=== PATIENT | male | born 1975 | race Hispanic/Latino ===

== ENCOUNTER 2017-04-18 09:03 | Emergency (ER) | payer OTHER ==
[~2017-04-18] VITALS: Ht 175.3 cm; Wt 131.5 kg
[2017-04-18 09:11] VITALS: BP 115/82
--- NOTE | 2017-04-18 09:35 | ED INFLUENZA/URI COMPLAINT ---
History of Present Illness General Chief Complaint: Upper Respiratory Sx/Fever Stated Complaint: URI/RASH Source: patient, old records Exam Limitations: no limitations Vital Signs & Intake/Output Vital Signs & Intake/Output Vital Signs Date Time Temp Pulse Resp B/P B/P Pulse O2 O2 Flow FiO2 Mean Ox Delivery Rate 04/18 0911 98.1 70 20 115/82 97 Room Air Allergies Coded Allergies: No Known Allergies (04/18/17) Reconcile Medications Amoxicillin/Potassium Clav (Augmentin 875-125 Tablet) 875 MG-125 MG TABLET 1 TAB PO BID uri Methylprednisolone. (Medrol) 4 MG TAB.DS.PK 1 DP PO AD dermatitis 6 on day 1 then reduce by one tablet daily until gone Triage Note: C/O ITCHY RASH ON ARMS, NECK, HEAD, FACE AND HANDS SINCE YESTERDAY. PT ALSO C/O CONGESTION Triage Nurses Notes Reviewed? yes Onset: Abrupt Duration: day(s): (3-4), constant Timing: recent history Severity: mild Severity Numbers: 5 Prior Episodes/Possible Cause: occassional episodes No Modifying Factors: none Associated Symptoms: cough, nasal congestion, nasal drainage HPI: 41-year-old male with history of hypertension presents to ER for evaluation complaining of rhinorrhea congestion cough for the past few days. He reports his sons have been home sick with similar symptoms. He states this morning he also woke up with a pruritic rash to his arms and chest wall. He denies history of similar rash in the past no sick contacts with rash as well. He denies any difficulty swallowing difficulty breathing nausea vomiting. He has not taken anything for his symptoms. He is on losartan for blood pressure. The patient states he did begin using a new detergent for his close (Xavi Blankenship) Past History Travel History Traveled to [place] past 21 day No Medical History Any Pertinent Medical History? see below for history Cardiovascular: hypertension Surgical History Surgical History: none Psychosocial History What is your primary language Greenlandic Tobacco Use: Never used ETOH Use: occasional use Illicit Drug Use: denies illicit drug use Family History Hx Contributory? No (Xavi Blankenship) Review of Systems Review of Systems Constitutional: Reports: see HPI. Comments Review of systems: See HPI, All other systems negative. Constitutional, no chills no fever, HEENT: no sore throat congestion Cardiovascular: No chest pain Skin: see hpi Respiratory: No dyspnea cough no sputum GI: No nausea no vomiting, no diarrhea, Muscle skeletal: No joint pain, no back pain, no neck pain, Neurologic: , no headache Heme/endocrine: No bruising Immunology: No lymphadenopathy (Xavi Blankenship) Physical Exam Physical Exam General Appearance: well developed/nourished, alert, awake Ears, Nose, Throat: normal ENT inspection, moist mucous membrane, hearing grossly normal Comments: Well-developed well-nourished patient in no apparent distress. Head/Face: Atraumatic, no maxillary/frontal sinus tenderness, no facial swelling Eyes: PERRL, EOMI, no conjunctival injection Ear:External auditory canals clear Nose: atraumatic.Normal inspection Throat: Moist mucous membranes.Pharynx normal. No stridor/drooling or assymetry. No swelling or edema. No uvula displacement no stridor no trismus Neck: Supple, no lymphadenopathy, FROM Back: FROM Cardiovascular: Regular rate and rhythms no murmurs rubs or gallops, Respiratory: No respiratory distress. Patient speaking in full complete sentences. Breath sounds clear to auscultation bilaterally: NO W/R/R Extremities: full range of motion Neuro: awake, alert, and oriented to person, place and time. There were no obvious focal neurologic abnormalities. Skin: Warm & dry; mild urticaria noted to bilateral volar forearms and upper chest wall Psych: Mood affect normal, normal memory normal judgment. Core Measures Sepsis Present: No Sepsis Focused Exam Completed? No (Xavi Blankenship) Progress Differential Diagnosis: influenza, otitis, pharyngitis, sinusitis, allergic reaction, viral exanthem Plan of Care: Discussed with patient plan of care, he is speaking in full complete sentences in no apparent distress advised close follow up with his primary care physician this week prescription for Medrol Dosepak Augmentin will be provided they feel comfortable plan cleared for discharge. Initial ED EKG: none (Xavi Blankenship) Departure Departure Time of Disposition: 935 Disposition: HOME OR SELF CARE Condition: Stable Clinical Impression Primary Impression: URI (upper respiratory infection) Secondary Impressions: Dermatitis Referrals: Oh Perez MD (PCP/Family) Additional Instructions: augmentin and medrol dosepak as directed. drink plenty of fluids. stop using the new detergent. follow up with your pmd return with any concerns Departure Forms: Customer Survey General Discharge Information Prescriptions: Current Visit Scripts Amoxicillin/Potassium Clav (Augmentin 875-125 Tablet) 1 TAB PO BID #14 TAB Methylprednisolone. (Medrol) 1 DP PO AD #1 DP 6 on day 1 then reduce by one tablet daily until gone (Oskar NEVAREZ,Xavi) PA/BOBTAILER Co-Sign Statement Statement: ED Attending supervision documentation- [] I saw and evaluated the patient. I have also reviewed all the pertinent lab results and diagnostic results. I agree with the findings and the plan of care as documented in the PA's/BOBTAILER's documentation. [X] I have reviewed the ED Record and agree with the PA's/BOBTAILER's documentation. [] Additions or exceptions (if any) to the PAs/BOBTAILER's note and plan are summarized below: [] (Neida CHEN,Iván Brady)
[2017-04-18] MEDS ORDERED: MEDROL4 M2 PO (09:38)
[2017-04-18] MEDS ORDERED: AUGMENTIN 875-1 EACH PO (09:38)
== END 2017-04-18 09:46 ==
LOC: ERH 09:03
DX: J06.9 Acute upper respiratory infection, unspecified (principal); L30.9 Dermatitis, unspecified

== ENCOUNTER 2017-06-19 09:02 | Observation (INO) | payer OTHER ==
[~2017-06-19] VITALS: Ht 175.3 cm; Wt 131.5 kg
[~2017-06-19 09:02] MED LIST: AUGMENTIN 875-1 EACH PO; MEDROL4 M2 PO
--- NOTE | 2017-06-19 09:26 | ED CARDIAC/CP/PALPITATIONS ---
History of Present Illness General Chief Complaint: Abdominal Pain/Flank Pain Stated Complaint: ABDOMINAL PAIN Source: patient Exam Limitations: no limitations Vital Signs & Intake/Output Vital Signs & Intake/Output Vital Signs Date Time Temp Pulse Resp B/P B/P Pulse O2 O2 Flow FiO2 Mean Ox Delivery Rate 06/20 0639 98.2 78 18 108/69 94 Room Air 06/20 0430 97.9 69 18 104/60 96 Room Air / 0229 97.8 63 20 106/56 96 Room Air / 0030 98.2 65 20 143/76 95 Room Air / 1913 99.5 84 17 148/81 96 Room Air 06/19 1735 100.4 78 16 158/84 97 Room Air 06/19 1432 99.9 73 18 154/86 98 Room Air / 1016 76 180/100 03/ 0915 98.4 76 18 180/100 98 Room Air ED Intake and Output 06/20 0000 / 1200 Intake Total 60 Output Total Balance 60 Intake, Oral 60 Patient 290 lb Weight Weight Reported by Patient Measurement Method Allergies Coded Allergies: No Known Allergies (04/18/17) Triage Note: 41 YO MALE TO TRIAGE C/O ABD PAIN IN MID-ABD SINCE THIS AM. DENIES NVD. LMB THIS AM AND NORMAL FOR PT. Triage Nurses Notes Reviewed? yes Onset: Abrupt Duration: constant Timing: single episode today Quality/Severity: sharp, stabbing Location: abdomen Radiation: no radiation HPI: Patient is a 41-year-old male with a past medical history of hypertension currently on no certain and gout who takes NSAIDs on a regular basis who presents emergency room seen at last night he was in his normal state of health patient woke up today with acute onset of epigastric nonradiating stabbing pain symptoms began around the time he had a significant bowel movement patient states the bowel movement was brown no blood no melena noted symptoms still persisted and was significant that patient presents emergency room, patient denies any fever chills back pain arm pain jaw pain diaphoresis nausea cough shortness of breath chest pain testicular pain history of DVT or PE He did not take his LOSARTAN today Denies any nausea or vomiting Patient is complaining of a one-day history of right-sided ear pain (Ruth NEVAREZ,Xavi) Reconcile Medications Losartan (Cozaar) 100 MG TABLET 100 MG PO HTN (Reported) Oxycodone HCl/Acetaminophen (Percocet 5-325 MG Tablet) 5 MG-325 MG TABLET 1-2 TAB PO Q4-6 PRN PAIN (Neida CHEN,Iván Brady) Past History Travel History Traveled to [place] past 21 day No Medical History Any Pertinent Medical History? see below for history Cardiovascular: hypertension Musculoskeletal: gout Surgical History Surgical History: none Psychosocial History What is your primary language Filipino Tobacco Use: Never used Family History Hx Contributory? No (Xavi Nelson) Review of Systems Review of Systems Constitutional: Reports: no symptoms. EENTM: Reports: no symptoms. Respiratory: Reports: no symptoms. Cardiovascular: Reports: no symptoms. GI: Reports: see HPI, abdominal pain. Genitourinary: Reports: no symptoms. Musculoskeletal: Reports: no symptoms. Skin: Reports: no symptoms. Neurological/Psychological: Reports: no symptoms. Hematologic/Endocrine: Reports: no symptoms. Immunologic/Allergic: Reports: no symptoms. All Other Systems: Reviewed and Negative (Xavi Nelson) Physical Exam Physical Exam General Appearance: moderate distress, obese Head: atraumatic Eyes: Bilateral: normal appearance. Ears, Nose, Throat: hearing grossly normal, RIGHT TM ERYTHEMA Neck: normal inspection Respiratory: normal breath sounds, chest non-tender, no respiratory distress Cardiovascular: regular rate/rhythm Peripheral Pulses: 2+ radial (R) Gastrointestinal: EPIGASTRIC PAIN NO RLQ PAIN Extremities: normal inspection Skin: intact, normal color, warm/dry Core Measures ACS in differential dx? Yes CVA/TIA Diagnosis No Sepsis Present: No Sepsis Focused Exam Completed? No (Xavi Nelson) Progress Differential Diagnosis: AMI, aortic dissection, atrial fibrillation, cholecystitis, CHF/pulm edema, costochondritis, hyperkalemia, hypovolemia, hyperthyroid, hyperventilation, intracranial hemorrhage, musculoskeletal pain, myocarditis, pancreatitis, pericarditis, pneumonia, pneumothorax, PSVT, pulmonary embolism, PUD/GERD, PVCs/PACs, respiratory failure, sepsis, unstable angina, V-fib/V-Tach, WPW syndrome Plan of Care: Orders Procedure Date/time Status Regular Diet 06/20 B Active CBC WITHOUT DIFFERENTIAL 06/20 599 Active BASIC ELECTROLYTES PLUS BUN&CR 06/20 599 Active Vital Signs 06/20 28 Active Teach/Educate 06/20 28 Active Pain Treatment and Response 06/20 28 Active Nutritional Intake, Monitor 03/07 0029 Active Isolation 06/20 0029 Active Intake & Output 06/20 0029 Active Patient Care Conference 06/20 0029 Active Activity/Ambulation 06/20 0029 Active Regular Diet 06/19 D Complete Pathway - chart 06/[address] in observation 06/19 2313 Active Patient Data 06/19 2240 Active Code Status 06/19 2240 Active PATHOLOGY SPECIMEN 06/19 2158 Active TROPONIN LEVEL 06/19 1430 Complete EKG 06/19 1430 Active LACTIC ACID 06/19 1327 Complete Add-on Test (ER Only) 06/19 1311 Active PARTIAL THROMBOPLASTIN TIME 06/19 1311 Complete PROTHROMBIN TIME 06/19 1311 Complete TYPE & SCREEN (NOT X-MATCH) 06/19 1311 Complete Intake & Output 06/19 1046 Active Telemetry/Real Time Analyst 06/19 0927 Active TROPONIN LEVEL 06/19 0916 Complete LIPASE 06/19 0916 Complete COMPREHENSIVE METABOLIC PANEL 06/19 0916 Complete CBC WITHOUT DIFFERENTIAL 06/19 0916 Complete AMYLASE 06/19 0916 Complete EKG 06/[address] in observation 06/19 UNK Active Wound Care/Dressing 06/19 UNK Active VTE Mechanical Prophylaxis 06/19 UNK Active Vital Signs 06/19 UNK Active Activity/Ambulation 06/19 UNK Active Current Medications Sig/Ladarius Start time Last Medication Dose Stop Time Status Admin Losartan Potassium 100 MG DAILY 06/20 1000 AC (Cozaar) Metronidazole 500 MG IQ8 06/20 0000 AC 06/20 (Flagyl) 06/20 0859 0016 N/A 1 UNIT (No Carrier) Acetaminophen 650 MG Q6P PRN 06/19 2315 AC (Tylenol) Morphine Sulfate 4 MG Q2P PRN 06/19 2315 AC (MORPHINE SULFATE) Ondansetron HCl 4 MG Q6P PRN 06/19 2315 AC (Zofran) Oxycodone/ 1 TAB Q4P PRN 06/19 2315 AC Acetaminophen (Percocet) Oxycodone/ 2 TAB Q4P PRN 06/19 2315 AC Acetaminophen (Percocet) Promethazine HCl 12.5 MG Q6P PRN 06/19 2315 AC (Phenergen) 06/26 231 Ceftriaxone Sodium 1,000 MG ONCE ONE 06/19 1315 CAN (Rocephin) 06/19 1316 Metronidazole 500 MG ONCE ONE 06/19 1315 CAN (Flagyl) 06/19 1414 N/A 1 UNIT (No Carrier) Laboratory Tests 06/19/17 1852: Lactic Acid Cancelled 06/19/17 1552: Lactic Acid 1.3, PT 12.3, INR 1.13, APTT 31 06/19/17 1433: Troponin I < 0.01 06/19/17 1130: Anion Gap 14, Estimated GFR > 60, BUN/Creatinine Ratio 13.8, Glucose 97, Calcium 9.5, Total Bilirubin 0.5, AST 25, ALT 41, Alkaline Phosphatase 104, Troponin I < 0.01, Total Protein 7.4, Albumin 4.3, Globulin 3.1, Albumin/Globulin Ratio 1.4, Amylase 55, Lipase 53, CBC w Diff NO MAN DIFF REQ, RBC 6.01, MCV 80.7, MCH 26.6 L, MCHC 33.0, RDW 14.4, MPV 8.8, Gran % 79.5 H, Lymphocytes % 13.2 L, Monocytes % 5.9, Eosinophils % 0.9, Basophils % 0.5, Absolute Granulocytes 6.8 H, Absolute Lymphocytes 1.1 L, Absolute Monocytes 0.5, Absolute Eosinophils 0.1 , Absolute Basophils 0 06/19/17 0925: Amylase Cancelled, Lipase Cancelled Patient on initial examination was in moderate distress due to epigastric localized abdominal pain. Patient does have nonspecific ST elevation in V1 and V2 however denies any cardiovascular symptoms and his symptoms of presentation of ND are seemingly atypical however cardiac marker blood work will be obtained. After morphine was GIVEN, patient had significant resolution of his pain. Patient currently is resting comfortably at bedside blood work and CT scan is pending Patient has been reevaluated on multiple occasions and has multiple exacerbations of this pain morphine was given on multiple occasions I discussed results with radiologist for concerns of early acute appendicitis due to amoxicillin allergy he was administered Rocephin Flagyl 1330 Discussed patient with Watson Barnard MD who was aware and WILL evaluate On reexamination patient he now has right lower quadrant pain It was discussed to me by surgical PA that they advised to discontinue the antibiotics at this time 1422 Surgery will evaluate patient and approximately 90 minutes Repeat troponin was unremarkable 1533 patient was reevaluated resting comfortably was offered pain medications and declined 1746- patient was reevaluated and now has more concerns of right lower quadrant pain on exam patient does have noted fever discussed patient with Watson Barnard MD who evaluated patient in the emergency room and will most likely proceed with appendectomy today. He advised patient to now be given antibiotics. Discussed this disposition AND plan with patient who requested another dose of pain medication. Diagnostic Imaging: Viewed by Me: Radiology Read. Discussed w/RAD: Radiology Read. Radiology Impression: acute abnormality Initial ED EK BPM,NONSPECIFIC ST ELEVATION IN V1/V2 Repeat EKG: unchanged Comments: PATIENT: AUGUSTIN AGUILAR PRESENT AGE: 41 PATIENT ACCOUNT NO: [id number] : 77 LOCATION: ER ORDERING PHYSICIAN: Xavi NEVAREZ SERVICE DATE: 06/19/17 EXAM TYPE: CAT - CT ABD & PELVIS W IV CONTRAST EXAMINATION: CT ABDOMEN AND PELVIS WITH CONTRAST CLINICAL INFORMATION: Epigastric pain COMPARISON: None TECHNIQUE: Multidetector volumetric imaging was performed of the abdomen and pelvis following IV administration of 95 mL of Optiray 320 intravenous contrast. Sagittal and coronal reformatted images were obtained on the technologist's workstation. DLP: 1612 mGy-cm FINDINGS: LUNG BASES: The visualized lung bases are unremarkable. LIVER, GALLBLADDER, AND BILIARY TREE: The liver is normal in size, shape, and attenuation. No focal hepatic lesion or biliary ductal dilatation is present. The gallbladder is unremarkable with no evidence of radiopaque gallstones, gallbladder wall thickening, or obvious pericholecystic inflammatory changes. PANCREAS: Unremarkable. SPLEEN: Unremarkable. ADRENAL GLANDS: Unremarkable. KIDNEYS AND URETERS: The kidneys are normal in size, shape, and attenuation. No hydronephrosis, hydroureter, or calculi seen. No perinephric stranding. BLADDER: Unremarkable. GASTROINTESTINAL TRACT: The stomach is decompressed with no gross abnormality. The small bowel is normal in caliber. No obstruction. There is a tiny appendicolith in the appendix. The appendix is mildly prominent, measuring 0.9 cm in diameter. Faint adjacent inflammation is noted. The appearance raises suspicion for appendicitis. The remainder of the colon demonstrates no wall thickening or inflammatory changes there is minimal diverticulosis at the sigmoid colon. ABDOMINAL WALL: No significant hernia is appreciated. LYMPH NODES: Normal. VASCULAR: Unremarkable. PELVIC VISCERA: The prostate and seminal vesicles are unremarkable. OSSEOUS STRUCTURES: No acute or suspicious osseous abnormalities. IMPRESSION: Mildly prominent appendix. Appendicolith present with minimal adjacent inflammation. The appearance is suspicious for early appendicitis. This critical result was discussed with Xavi Miranda MD by telephone at 06/19/2017 1:02 PM and it was ascertained that the content and urgency of the report was understood at the time of direct communication. DICTATED BY: Davide Ervin MD DATE/TIME DICTATED:06/19/171258 MAIL HANDLER EQUIPMENT OPERATOR:JULIUS DATE/TIME TRANSCRIBED:06/19/171258 CONFIDENTIAL, DO NOT COPY WITHOUT APPROPRIATE AUTHORIZATION. <Electronically signed in Other Vendor System> SIGNED BY: Aziza CHEN,Davide 06/19 1308 PATIENT: AUGUSTIN AGUILAR PRESENT AGE: 41 PATIENT ACCOUNT NO: [id number] : 77 LOCATION: [facility] ORDERING PHYSICIAN: Xavi NEVAREZ SERVICE DATE: 06/19/17 EXAM TYPE: RAD - XRY-PORTABLE CHEST XRAY EXAMINATION: XR PORTABLE CHEST CLINICAL INFORMATION: Epigastric chest pain COMPARISON: None TECHNIQUE: Portable frontal view of the chest was obtained. FINDINGS: No focal consolidation, pleural effusion or pneumothorax. Borderline cardiomegaly, likely accentuated by technique and hypoinflation. No acute osseous abnormality. IMPRESSION: No acute pulmonary process. Borderline cardiomegaly likely accentuated by hypoinflation of the lungs and AP technique. DICTATED BY: Negar Zhang MD DATE/TIME DICTATED:06/19/17955 MAIL HANDLER EQUIPMENT OPERATOR:JULIUS (Xavi Nelson) Departure Departure Disposition: STILL A PATIENT Condition: Guarded Clinical Impression Primary Impression: Appendicitis Secondary Impressions: Right otitis media Referrals: Oh Perez MD (PCP/Family) Departure Forms: Customer Survey General Discharge Information OR/GI Note Spoke With: Evon CHEN,Watson Soriaon. ED Treatment Decision: AUGUSTIN AGUILAR requires urgent operative management or an emergent procedure that cannot be performed in the Emergency Room setting. Transport To: [facility] (Xavi Nelson) Departure Prescriptions: Current Visit Scripts Oxycodone HCl/Acetaminophen (Percocet 5-325 MG Tablet) 1-2 TAB PO Q4-6 PRN PAIN #36 TAB PA/RN CASE MGR Co-Sign Statement Statement: ED Attending supervision documentation- [X] I saw and evaluated the patient. I have also reviewed all the pertinent lab results and diagnostic results. I agree with the findings and the plan of care as documented in the PA's/RN CASE MGR's documentation. [X] I have reviewed the ED Record and agree with the PA's/RN CASE MGR's documentation. [] Additions or exceptions (if any) to the PAs/RN CASE MGR's note and plan are summarized below: [] (Neida CHEN,Iván Brady) PA/RN CASE MGR Co-Sign Statement Statement: ED Attending supervision documentation- [] I saw and evaluated the patient. I have also reviewed all the pertinent lab results and diagnostic results. I agree with the findings and the plan of care as documented in the PA's/RN CASE MGR's documentation. [] I have reviewed the ED Record and agree with the PA's/RN CASE MGR's documentation. [] Additions or exceptions (if any) to the PAs/RN CASE MGR's note and plan are summarized below: [] (Corey Beatty DO) Critical Care Note Critical Care Note Critical Care Time: 75-104 min (Ruth NEVAREZ,Xavi)
--- NOTE | 2017-06-19 10:01 | RADIOLOGY REPORT ---
EXAMINATION: XR PORTABLE CHEST CLINICAL INFORMATION: Epigastric chest pain COMPARISON: None TECHNIQUE: Portable frontal view of the chest was obtained. FINDINGS: No focal consolidation, pleural effusion or pneumothorax. Borderline cardiomegaly, likely accentuated by technique and hypoinflation. No acute osseous abnormality. IMPRESSION: No acute pulmonary process. Borderline cardiomegaly likely accentuated by hypoinflation of the lungs and AP technique.
[2017-06-19 11:40] LABS: ABSOLUTE BASOPHIL COUNT 0 /CUMM (0.0-0.2); ABSOLUTE EOSINOPHIL COUNT 0.1 /CUMM (0.0-0.7); ABSOLUTE GRANULOCYTE CT 6.8 /CUMM (1.4-6.5); ABSOLUTE LYMPH COUNT 1.1 /CUMM (1.2-3.4); ABSOLUTE MONOCYTE COUNT 0.5 /CUMM (0.10-0.60); BASOPHIL % 0.5 % (0.0-2.0); EOSINOPHIL % 0.9 % (0-5); HEMATOCRIT 48.5 % (42-52); MEAN CORPUSCULAR HGB 26.6 PG (27.0-31.0); MEAN CORPUSCULAR VOLUME 80.7 FL (80.0-94.0); MEAN PLATELET VOLUME 8.8 FL (7.4-10.4); PLATELET COUNT 195 /CUMM (130-400); RBC DISTRIBUTION WIDTH 14.4 % (11.5-14.5); RED BLOOD CELL CT 6.01 /CUMM (4.70-6.10); WHITE BLOOD CELL COUNT 8.6 /CUMM (4.8-10.8)
[2017-06-19 11:42] LABS: GRANULOCYTE % 79.5 % (42.2-75.2)
--- NOTE | 2017-06-19 13:08 | CT SCAN REPORT ---
EXAMINATION: CT ABDOMEN AND PELVIS WITH CONTRAST CLINICAL INFORMATION: Epigastric pain COMPARISON: None TECHNIQUE: Multidetector volumetric imaging was performed of the abdomen and pelvis following IV administration of 95 mL of Optiray 320 intravenous contrast. Sagittal and coronal reformatted images were obtained on the technologist's workstation. DLP: 1612 mGy-cm FINDINGS: LUNG BASES: The visualized lung bases are unremarkable. LIVER, GALLBLADDER, AND BILIARY TREE: The liver is normal in size, shape, and attenuation. No focal hepatic lesion or biliary ductal dilatation is present. The gallbladder is unremarkable with no evidence of radiopaque gallstones, gallbladder wall thickening, or obvious pericholecystic inflammatory changes. PANCREAS: Unremarkable. SPLEEN: Unremarkable. ADRENAL GLANDS: Unremarkable. KIDNEYS AND URETERS: The kidneys are normal in size, shape, and attenuation. No hydronephrosis, hydroureter, or calculi seen. No perinephric stranding. BLADDER: Unremarkable. GASTROINTESTINAL TRACT: The stomach is decompressed with no gross abnormality. The small bowel is normal in caliber. No obstruction. There is a tiny appendicolith in the appendix. The appendix is mildly prominent, measuring 0.9 cm in diameter. Faint adjacent inflammation is noted. The appearance raises suspicion for appendicitis. The remainder of the colon demonstrates no wall thickening or inflammatory changes there is minimal diverticulosis at the sigmoid colon. ABDOMINAL WALL: No significant hernia is appreciated. LYMPH NODES: Normal. VASCULAR: Unremarkable. PELVIC VISCERA: The prostate and seminal vesicles are unremarkable. OSSEOUS STRUCTURES: No acute or suspicious osseous abnormalities. IMPRESSION: Mildly prominent appendix. Appendicolith present with minimal adjacent inflammation. The appearance is suspicious for early appendicitis. This critical result was discussed with Xavi Miranda MD by telephone at 06/19/2017 1:02 PM and it was ascertained that the content and urgency of the report was understood at the time of direct communication.
[2017-06-19 16:10] LABS: PT 12.3 SEC (9.4-12.5); PTT 31 SEC (25-37)
[2017-06-19] MEDS ORDERED: COZAAR100 M1 PO (18:34)
--- NOTE | 2017-06-19 20:58 | History & Physical Pre-Op ---
General Information and HPI History of Present Illness: CC: abdominal pain HPI: 41 yo non-diabetic non-smoker who woke this morning with upper abdominal pain he had 1 loose bowel movement tried some more precluded the pain persisted and intensified and he came to the ER, his first time pain like this no unusual meals recently he has had an ear infection the past few days no family history of acute appendicitis no nausea no vomiting no fevers no sweats he doesn't recall any fatty food intolerance no dysuria no bleeding per rectum. Otherwise no changes bowel habits, weight or appetite. I've reviewed the [facility]. No history of GERD, PUD, bleeding problems, heart disease or issues with anesthesia. Family history positive for lung cancer past surgical history none Allergies/Medications Allergies: Coded Allergies: No Known Allergies (04/18/17) Home Med list Losartan (Cozaar) 100 MG TABLET 100 MG PO HTN (Reported) Past History Medical History Cardiovascular: hypertension Musculoskeletal: gout Surgical History Pertinent Surgical History: none Review of Systems Review of Systems: Constitutional: No fever, sweats or weight loss ENMT: No sore throat Cardiovascular: No chest pain, palpitations or leg swelling Respiratory: No shortness of breath, cough, or sputum or dyspnea on exertion GI: No GERD or bleeding per rectum : No dysuria or hematuria Musculoskeletal: No new muscle weakness, bone or joint pain Skin / Breast: No jaundice, rashes or itching Psychiatric: No history of drug or alcohol abuse no depression or anxiety Hematologic / lymphatic system: No problems with excessive bleeding, bruising, or blood clots Exam & Diagnostic Data Last 24 Hrs of Vital Signs/I&O I reviewed Vital Signs Date Time Temp Pulse Resp B/P B/P Pulse O2 O2 Flow FiO2 Mean Ox Delivery Rate 06/19 1913 99.5 84 17 148/81 96 Room Air 06/19 1735 100.4 78 16 158/84 97 Room Air 06/19 1432 99.9 73 18 154/86 98 Room Air 06/19 1016 76 180/100 06/19 0915 98.4 76 18 180/100 98 Room Air I reviewed Intake & Output 06/19 1600 06/19 0800 06/19 0000 Intake Total 60 Output Total Balance 60 Intake, Oral 60 Patient 290 lb Weight Weight Reported by Patient Measurement Method Physical Exam: Constitutional: pleasant, no acute distress, conversant Eyes: sclera anicteric ENMT: ears and nose atraumatic, moist mucous membranes, good dentition, no lip lesions Neck: Supple, trachea is midline, no cervical or supraclavicular adenopathy and no palpable thyromegaly Cardiovascular: S1, S2, no murmurs, no peripheral edema Respiratory: clear to auscultation with normal respiratory effort and no intercostal retractions GI: abdomen soft, relatively more tender right side of abdomen but not particularly in the right lower quadrant, no rebound no guarding, nondistended, no palpable hepatosplenomegaly Extremities / lymphatics: symmetrically warm, free range of motion no peripheral edema, no cervical, supraclavicular, axillary, or inguinal adenopathy Musculoskeletal: Did not evaluate gait and station, no digital cyanosis, good muscle strength and tone no atrophy, motor grossly 5 out of 5 throughout Skin: no jaundice, no rashes warm, nondiaphoretic, no areas of erythema or induration Psychiatric: mood and affect are appropriate and alert and oriented to person place and time Last 24 Hrs of Labs/Deyvi: I reviewed Laboratory Tests 06/19/17 1852: Lactic Acid Cancelled 06/19/17 1552: Lactic Acid 1.3, PT 12.3, INR 1.13, APTT 31 06/19/17 1433: Troponin I < 0.01 06/19/17 1130: Anion Gap 14, Estimated GFR > 60, BUN/Creatinine Ratio 13.8, Glucose 97, Calcium 9.5, Total Bilirubin 0.5, AST 25, ALT 41, Alkaline Phosphatase 104, Troponin I < 0.01, Total Protein 7.4, Albumin 4.3, Globulin 3.1, Albumin/Globulin Ratio 1.4, Amylase 55, Lipase 53, CBC w Diff NO MAN DIFF REQ, RBC 6.01, MCV 80.7, MCH 26.6 L, MCHC 33.0, RDW 14.4, MPV 8.8, Gran % 79.5 H, Lymphocytes % 13.2 L, Monocytes % 5.9, Eosinophils % 0.9, Basophils % 0.5, Absolute Granulocytes 6.8 H, Absolute Lymphocytes 1.1 L, Absolute Monocytes 0.5, Absolute Eosinophils 0.1 , Absolute Basophils 0 06/19/17 0933: Amylase Cancelled, Lipase Cancelled Assessment/Plan Assessment/Plan: Studies I reviewed the CT scan on PACS myself that shows a prominent appendix with minimal if at all surrounding stranding and an appendicolith near the base Note while in the ER his temperature went up to over 100 in the sense was that his abdominal discomfort migrated from the epigastrium to the lower mid abdomen. Impression is severity of symptoms don't correlate with the changes on the CT scan but it may be evolving there are signs of worsening, perhaps a recent ear infection is related, I explained this to the patient and his there is a small chance his appendix is normal have to consider it but I doubt its biliary colic. So overall because of the fever and the change in location of the pain I feel an appendectomy is warranted. Impression is acute appendicitis I explained to the patient that this is a potentially life-threatening infection for which I recommend an appendectomy. I feel antibiotics often alone are not enough and sometimes there is an occult malignancy. The severity of infection is related to the chance of perforation which usually increases after about 24 hours fortunately the patient is presenting earlier. Depending on what we find intraoperatively they may be discharged the same day or may need to stay for more IV antibiotics, at depends. I also discussed the possibility of a postoperative infection whether superficial or deep, this is also related to the initial severity and may also appear even a week later after an initial interval of well-being during the recovery. I explained the operation we usually do it laparoscopically rarely converting to open, depending on the amount of inflammation and whether the anatomy is very unusual all to avoid inadvertent injury to surrounding surrounding structures such as bowel and blood vessels and ureter. We also discussed the potential risks, benefits and alternatives to the procedure and surgery in general, issues that included but were not limited to, anesthetic risks hemorrhage requiring transfusion, the risk of transfusion itself, infection, heart attack, stroke, . As Ranked By This Provider Problem List: 1. Appendicitis 2. Abdominal pain
[2017-06-20 00:30] VITALS: BP 143/76
[2017-06-20 02:29] VITALS: BP 106/56
[2017-06-20 04:30] VITALS: BP 104/60
--- NOTE | 2017-06-20 05:55 | Admission Core Measures ---
Acute Coronary Syndrome (CM) ACS Core Measures Acute Coronary Syndrome Diagnosis No Congestive Heart Failure (NEW) CHF Core Measures Congestive Heart Failure Diagnosis No Cerebrovascular Accident (NEW) CVA Core Measures CVA/TIA Diagnosis No Venous Thromboembolism VTE Core Bre (View Protocol) VTE Risk Factors Surgery No Mechanical VTE Prophylaxis d/t N/A MechProphylax Ordered No VTE Pharm Prophylaxis d/t LowRisk-No Interven Req'd Problem List As ranked by this Provider includes Assessment & Plan 1. Appendicitis
[2017-06-20 06:39] VITALS: BP 108/69
[2017-06-20] MEDS ORDERED: PERCOCET 5-3251 EACH PO ×2 (07:06→07:23)
--- NOTE | 2017-06-20 07:13 | Patient Discharge Instructions ---
Discharge Instructions General Discharge Information You were seen/treated for: Acute appendicitis You had these procedures: Laparoscopic appendectomy Watch for these problems: Increasing pain despite the use of pain medication Increasing nausea or vomitting Inability to urinate Inability to pass gas or move bowels Increasing redness or warmth near incisions Drainage from incisions Fever greater than 101.5 Do not soak the wound: Yes No bath, but you may shower: Yes Other wound care: Keep wound clean and dry. Do not remove steri-strips, please allow them to fall off on their own. They are very adhesive, any attempt to remove them early may put you at risk of irritating your incisions. It sometimes can take greater than 1 week for steri strips to fall off. Diet Continue normal diet: Yes Recommended Diet: Regular Additional DIET Information: Advance slowly as tolerated Activity Full Activity/No Limits: No Activity Self Limited: Yes Pounds, do NOT lift more than: 10 Acute Coronary Syndrome Inclusion Criteria At DC or during hospital stay patient has or had the following: ACS DIAGNOSIS No Discharge Core Measures Meds if any: Prescribed or Continued at Discharge Meds if any: NOT Prescribed or Continued at Discharge Congestive Heart Failure Inclusion Criteria At DC or during hospital stay patient has or had the following: CHF DIAGNOSIS No Discharge Core Measures Meds if any: Prescribed or Continued at Discharge Meds if any: NOT Prescribed or Continued at Discharge Cerebrovascular accident Inclusion Criteria At DC or during hospital stay patient has or had the following: CVA/TIA Diagnosis No Discharge Core Measures Meds if any: Prescribed or Continued at Discharge Meds if any: NOT Prescribed or Continued at Discharge Venous thromboembolism Inclusion Criteria VTE Diagnosis No VTE Type NONE VTE Confirmed by (Test) NONE Discharge Core Measures - Per Current guidelines, there needs to be overlap - treatment for the first 5 days of Warfarin therapy. - If discharged on Warfarin prior to 5 days of - overlap therapy, the patient will need to be - assessed for post discharge needs including - *Post discharge parental anticoagulation - *Warfarin and/or parental anticoagulation education - *Follow up date to check INR post discharge At least 5 days overlap therapy as Inpatient No Meds if any: Prescribed or Continued at Discharge Note: Overlap Therapy is Warfarin and Anticoagulant Meds if any: NOT Prescribed or Continued at Discharge
--- NOTE | 2017-06-20 07:30 | PN- General Surgery ---
Subjective Subjective: Doing well post op. Pre-op pain resolved. Only complains of mild incisional pain. Has been oob, voided. No nausea or vomitting. Is anticipating regular diet this am. Denies chest pain, shortness of breath and difficulty breathing. Objective Vital Signs and I&Os Vital Signs Date Time Temp Pulse Resp B/P B/P Pulse O2 O2 Flow FiO2 Mean Ox Delivery Rate 06/20 0539 98.2 78 18 108/69 94 Room Air 06/20 0430 97.9 69 18 104/60 96 Room Air 06/20 0229 97.8 63 20 106/56 96 Room Air 06/20 0030 98.2 65 20 143/76 95 Room Air 06/19 1913 99.5 84 17 148/81 96 Room Air 06/19 1735 100.4 78 16 158/84 97 Room Air 06/19 1432 99.9 73 18 154/86 98 Room Air / 1016 76 180/100 03/ 0915 98.4 76 18 180/100 98 Room Air Intake & Output 06/20 0800 03/07 0000 03/06 1600 /06 0800 03/ 0000 03/05 1600 Intake Total 900 60 Output Total Balance 900 60 Intake, IV 600 Intake, Oral 300 60 Patient 290 lb 290 lb Weight Weight Reported by Patient Measurement Method Physical Exam: General: Alert and oriented x3, no acute distress Cardiac: RRR, s1s2 Pulm: CTA bilaterally. Non-labored respiratory effort Abdomen: No peritonitic signs, mild lou-incisional tenderness. Non-distended. Bowels sounds auscultated. Dressings dry and intact Extremities: MOves all extremities, distal sensation grossly intact. Skin warm and well perfused. DP pulses palpable bilaterally. Bilateral calves soft and non-tender Assessment/Plan Assessment/Plan This is a 41 year old male. POD 1 s/p laparoscopic appendectomy. PMH signficant for htn. -Regular diet this am -DC iv fluids -OOB -Percocet for pain -DC to home pending tolerate diet -Will d/w Dr. Barnard Core Measures Venous Thromboembolism VTE Risk Factors Surgery No Mechanical VTE Prophylaxis d/t N/A MechProphylax Ordered No VTE Pharm Prophylaxis d/t LowRisk-No Interven Req'd
[2017-06-20 08:39] LABS: ABSOLUTE BASOPHIL COUNT 0 /CUMM (0.0-0.2); ABSOLUTE EOSINOPHIL COUNT 0 /CUMM (0.0-0.7); ABSOLUTE GRANULOCYTE CT 9.4 /CUMM (1.4-6.5); ABSOLUTE LYMPH COUNT 1.1 /CUMM (1.2-3.4); ABSOLUTE MONOCYTE COUNT 0.3 /CUMM (0.10-0.60); BASOPHIL % 0.2 % (0.0-2.0); EOSINOPHIL % 0.1 % (0-5); MEAN CORPUSCULAR HGB 26.8 PG (27.0-31.0); MEAN CORPUSCULAR HGB CONC 32.8 G/DL (33.0-37.0); MEAN CORPUSCULAR VOLUME 81.8 FL (80.0-94.0); MEAN PLATELET VOLUME 9.8 FL (7.4-10.4); RBC DISTRIBUTION WIDTH 14.6 % (11.5-14.5); RED BLOOD CELL CT 5.27 /CUMM (4.70-6.10); WHITE BLOOD CELL COUNT 10.9 /CUMM (4.8-10.8)
[2017-06-20 08:56] VITALS: BP 120/70
[2017-06-20 10:06] LABS: HEMATOCRIT 43.1 % (42-52)
[2017-06-20 10:07] LABS: GRANULOCYTE % 86.4 % (42.2-75.2); PLATELET COUNT 196 /CUMM (130-400)
--- NOTE | 2017-06-22 10:22 | Operative Report ---
Operative/Inv Procedure Report Surgery Date: 06/19/17 Name of Procedure: Laparoscopic appendectomy Pre-Operative Diagnosis: Acute appendicitis Post-Operative Diagnosis: Same Estimated Blood Loss: scant Surgeon/Shrimp Peeling Machine Tender: Evon CHEN,Watson NEVAREZ Anesthesia: general endotracheal tube Operative/Procedure Note Note: Patient was placed on the OR table in the supine position. After successful induction of general anesthesia the patient's abdomen was prepped clipped and draped in the usual sterile fashion The left arm was tucked. Local anesthetic was injected at the top of the umbilicus and entry into the peritoneum was established via the open Gama technique: a one cm curved incision was made at the top of the umbilicus, the linea alba was secured between 2 pediatric Nyla clamps and incised vertically, 0-Vicryl stay sutures were placed on each side and then while retracting upwards, the peritoneal layer was entered sharply, then through that small opening, using an S retractor acting like a shoehorn, a 10 mm blunt trocar was inserted obliquely to the right and secured with the stay sutures. The gas was turned on to maximum of 15 mm, two 5 mm dissecting ports were then inserted, one suprapubic and one left lower quadrant, laterally. We used a local anesthetic needle to guide their trajectories, particular attention was given to avoid injury to the bowel, the bladder and the epigastric vessels. Then our attention was directed to the right lower quadrant, the small bowel was swept superiorly and medially, revealing the base of the cecum. An inflamed appendix was then mobilized by it from the lateral and inferior peritoneal attachments using cautery. Using a combination of a [place] dissector, peanut dissector and a [place] clamp, a window was developed between the mesoappendix and the base of the appendix. This window is then used to divide the appendix at the base and the mesoappendix with a linear stapling device, separately, using an intestinal cartridge for the appendix and a vascular cartridge for the mesoappendix; the division of the appendix includes a small flange of cecal base. The appendix is lowered into an Endobag and set aside. The staple lines were checked for bleeding and small oozing was controlled with light zaps of the cautery. We deliberately irrigate the area including up by the liver and down in the pelvis, several rounds, checking the staple lines and each time to make sure that there is no ongoing bleeding. Next the instruments and the trochars and Endobag are removed, letting the gas out. We closed the umbilical fascial incision with a [id number] 0 vicryl suture, then the 3 skin incisions are closed with multiple interrupted subcuticular 4-0 Biosyn sutures, 3 for the umbilical, 1 each for the smaller ones, then covered with Mastisol, Steri-Strips and Band-Aids. EBL minimal Lap and sponge and sponge counts: correct Wound expectancy: infected IV fluids: crystalloid Complications: none Patient tolerated the procedure well was awakened and extubated and returned to the recovery room in satisfactory condition.
== END 2017-06-20 10:02 ==
LOC: ERH 09:02 → ER-OR 10:00 → ERH 20:12 → CRI 22:51 → 2NA 06-20 00:26 → ENTRNSPT 06-20 09:48 → EDTRNSPTSTS 06-20 09:58 → 2NA 06-20 10:02 → CMPTRNSPT 06-20 10:08 → EDTRNSPT 06-20 10:08
PROVIDERS: Emergency Medicine; Physician Assistant; Physician Assistant Surgical
DX: K35.80 Unspecified acute appendicitis (principal); I10 Essential (primary) hypertension; R10.13 Epigastric pain
CPT/HCPCS: 36415; 36592; 71045; 74177; 82436; 88304; 93005; 93010; 96374; 96375; 96376; C9399; G0378; J0131; J0696; J2250; J2270; J2405; J3010; J3490